=== PATIENT | female | born 1990 | race Caucasian/White ===

== ENCOUNTER 2022-04-13 22:18 | Emergency (ER) | payer OTHER, SELFPAY ==
--- NOTE | ~2022-04-13 | CT_ITS ---
EXAMINATION: CT abdomen pelvis w con DATE: 04/14/2022 00:42 INDICATION: Right lower quadrant abdominal pain TECHNIQUE: Computed tomography (CT) of the abdomen and pelvis was performed with 100 CC Omnipaque 350 intravenous contrast. Automated exposure control and iterative reconstruction technique were employe d. Exam dose: 557.90 mGy-cm total exam DLP. COMPARISON: None. FINDINGS: The lung bases are clear. Normal heart size. No pericardial or pleural effusion. The liver, gallbladder, bile ducts, pancreas, pancreatic duct, spleen, adrenal glands and kidneys are unremarkable. Normal caliber of the abdominal aorta. No intraperitoneal or retroperitoneal or pelvic mass lesion or adenopathy or ascites. Normal appendix. No bowel obstruction, bowel wall thickening, pneumatosis or intraperitoneal free air . The uterus and adnexal areas and urinary bladder are unremarkable. Included skeletal structures are unremarkable. IMPRESSION: Negative; normal appendix Reviewed, dictated and finalized at [facility] Reviewed, dictated and finalized at [facility] IMPRESSION: Negative; normal appendix
[2022-04-13 22:19] VITALS: BP 127/102; PULSE 81; RESP 16; TEMP 37.1; O2SAT 99
[2022-04-13 22:54] LABS: Basophils Percent Auto 0.3 % (0.2-1.2); Eosinophils Percent Auto 0.1 % (0-4.4); Hematocrit 47.5 % (37.0-47.0); Hemoglobin 15.6 g/dL (12.0-15.0); Immature Granulocyte Absolute 0.04 K/mm3 (0.00-0.031); Immature Granulocyte Percent A 0.4 % (0-0.5); Lymphocytes Absolute Auto 3.98 K/mm3 (0.9-3.2); Lymphocytes Percent Auto 36.1 % (18.3-44.2); Mean Corpuscular HGB Conc 32.8 g/dl (32-36); Mean Corpuscular Hemoglobin 29.7 pg (26-34); Mean Corpuscular Volume 90.3 fl (80-100); Monocytes Absolute Auto 0.6 K/mm3 (0.1-0.6); Monocytes Percent Auto 5.5 % (2.6-8.5); Neutrophils Absolute Auto 6.4 K/mm3 (1.3-6.7); Neutrophils Percent Auto 57.6 % (45.5-73.1); Platelet Count Result 211 k/mm3 (150-375); Red Blood Count 5.26 M/mm3 (4.2-5.4); Red Cell Distribution Width 13.3 % (11.5-14.5)
[2022-04-13 23:08] LABS: Appearance Urine Cloudy (Clear); Bacteria Urine 4+ /hpf; Bilirubin Urine 1+ (Negative); Blood Urine Negative (Negative); Color Urine Dark Yellow (Yellow); Glucose Urine UA Negative (Negative); Ketones Urine Trace mg/dL (Negative); Leukocyte Esterase Ur Negative LEU/UL (Negative); Nitrate Urine Negative (Negative); Protein Urine 1+ mg/dL (Negative); RBC Urine 0-2 /hpf (0-2); Squamous Epithelial Cell Urine Many /hpf (Few)
[2022-04-13 23:13] LABS: Specific Grav Ur 1.048 (1.001-1.035)
[2022-04-13 23:14] LABS: Add Urine Microscopic? YES
[2022-04-13] MEDS: ONDANSETRON INJ 4 MG/2 ML VIAL IV PUSH (23:28)
[2022-04-13] MEDS: SODIUM CHLORIDE 0.9% IV 1,000 ML 999 ML IV CONT (23:28)
[2022-04-13 23:31] VITALS: O2SAT 100
[2022-04-13 23:32] VITALS: BP 120/80; O2SAT 100
[2022-04-13 23:45] VITALS: O2SAT 99
[2022-04-14] VITALS (21 sets, daily range): BP systolic 108–136; BP diastolic 76–81; PULSE 82; RESP 18; O2SAT 98–100
[2022-04-14 00:23] LABS: Alanine Aminotransferase 21 U/L (6-35); Albumin Level 4.3 g/dL (3.5-5.1); Alkaline Phosphatase 102 U/L (38-126); Anion Gap 9 mmol/L (8-16); Aspartate Amino Transferase 29 U/L (14-36); Bilirubin,Total 0.6 mg/dL (0.2-1.3); Blood Urea Nitrogen 18 mg/dL (7-17); Calcium 8.4 mg/dL (8.4-10.2); Carbon Dioxide 22 mmol/L (22-30); Chloride 110 mmol/L (98-107); Estimated CRCL calculation 111 ml/min; Estimated Glomerular Filt Rate > 60; Glucose 93 mg/dL (65-110); Lipase 116 U/L (23-300); Potassium 3.9 mmol/L (3.4-5.0); Sodium 141 mmol/L (137-145)
--- NOTE | 2022-04-14 01:28 | ED.GENADULT ---
HPI - General Adult General Chief complaint: Abdominal Pain Stated complaint: abd Time Seen by Provider: 04/13/22 22:26 History of Present Illness HPI narrative: Patient 31-year-old female who presents the emergency department with chief complaint of abdominal pain. Patient reports that she started having pain in the right lower quadrant today patient reports symptoms or not improved by anything reports the symptoms were about 9 hours prior to arrival to the emergency department. Patient states that there is a chance she could be but does not believe that she has. Patient denies fever denies vaginal discharge denies dysuria Related Data Allergies Allergy/AdvReac Type Severity Reaction Status Date / Time No Known Allergies Allergy Unknown Verified 04/13/22 22:23 Review of Systems Review of Systems: A 10 system review of systems was completed on the patient and is negative except for what is stated in the HPI. Nursing and ancillary documentation was reviewed. Exam Narrative: GENERAL: Well-appearing, well-nourished, and in no acute distress. HEAD: Normocephalic, atraumatic. EYES: PERRLA and EOMI. ENT: Nares clear, no rhinorrhea or epistaxis. Mucous membranes moist. NECK: Supple. CHEST: Clear to auscultation. No respiratory distress. HEART: Regular rate and rhythm. No murmur heard. Normal peripheral pulses. ABDOMEN: Soft, tender to palpation in the right lower quadrant, nondistended, normal active bowel sounds. EXTREMITIES: Normal range of motion. No edema. SKIN: Warm, dry, no rash. NEURO: No focal deficits. Alert and oriented x3. PSYCH: Normal mood and affect. Course Vital Signs Vital signs: Vital Signs Temperature 37.1 C 04/13/22 22:19 Pulse Rate 81 04/13/22 22:19 Respiratory Rate 16 04/13/22 22:19 Blood Pressure 127/102 H 04/13/22 22:19 Pulse Oximetry 99 04/13/22 22:19 Oxygen Delivery Room Air 04/13/22 22:19 Temperature 37.1 C 04/13/22 22:19 Pulse Rate 81 04/13/22 22:19 Respiratory Rate 16 04/13/22 22:19 Blood Pressure 109/78 04/14/22 03:01 Pulse Oximetry 98 04/14/22 03:15 Oxygen Delivery Room Air 04/13/22 22:19 Medical Decision Making MDM Narrative Medical decision making narrative: Differential diagnosis includes appendicitis, colitis, ectopic , , UTI, pyelonephritis Laboratory studies were obtained which showed a white blood cell count of 11 CMP showed normal liver enzymes urinalysis showed 6-10 WBCs in the urine negative leukocyte esterase there was bacteria but there is many epithelial cells consistent with a not clean-catch. CT scan of the abdomen pelvis showed no evidence of acute appendicitis obstructing stone or colitis Vital Signs Vital Signs: Vital Signs Temperature 37.1 C 04/13/22 22:19 Pulse Rate 81 04/13/22 22:19 Respiratory Rate 16 04/13/22 22:19 Blood Pressure 127/102 H 04/13/22 22:19 Pulse Oximetry 99 04/13/22 22:19 Oxygen Delivery Room Air 04/13/22 22:19 Temperature 37.1 C 04/13/22 22:19 Pulse Rate 81 04/13/22 22:19 Respiratory Rate 16 04/13/22 22:19 Blood Pressure 109/78 04/14/22 03:01 Pulse Oximetry 98 04/14/22 03:15 Oxygen Delivery Room Air 04/13/22 22:19 Lab Data 04/13/22 22:39 04/13/22 23:24 Labs: Lab Results 04/13/22 04/13/22 04/13/22 Range/Units 22:39 22:39 23:24 WBC 11.0 H (4.5-10.0) K/mm3 RBC 5.26 (4.2-5.4) M/mm3 Hgb 15.6 H (12.0-15.0) g/dL Hct 47.5 H (37.0-47.0) % MCV 90.3 (80-100) fl MCH 29.7 (26-34) pg MCHC 32.8 (32-36) g/dl RDW 13.3 (11.5-14.5) % Plt Count 211 (150-375) k/mm3 MPV 11.0 H (7.4-10.4) fl Immature Gran % (Auto) 0.4 (0-0.5) % Neut % (Auto) 57.6 (45.5-73.1) % Lymph % (Auto) 36.1 (18.3-44.2) % [place] % (Auto) 5.5 (2.6-8.5) % Eos % (Auto) 0.1 (0-4.4) % Baso % (Auto) 0.3 (0.2-1.2) % Lymph # (Auto) 3.98 H (0.9-3.2) K/mm3
[2022-04-14] MEDS: KETOROLAC 15 MG/ML VIAL (*BKC) IV PUSH (03:25)
== END 2022-04-14 04:10 | disposition home or self-care (01) ==
PROVIDERS: Emergency Provider Emergency Medicine
DX: R10.31 Right lower quadrant pain (principal)
CPT/HCPCS: 36415; 74177; 80053; 81001; 81025; 83690; 85025; 96361; 96365; 96374; 96375; 99284; J0131; J1885; J2405; J7030; Q9967